=== PATIENT | male | born 1930 | race Caucasian/White ===

== ENCOUNTER → 2016-03-23 | Outpatient (CLI) | payer MEDICARE, OTHER ==
[~2016-03-23] MED LIST: /TAMS4CA PO; /WARF2TA PO; ATEN25TA PO; AUGM500T34 PO; AUGM875T27 PO; ENAL10TA2 PO; ENAL20TA PO; FLEX5TAB3 PO; FURO20TA PO; HYDR7.5T38 PO; LASI20TA PO; LIDO1DIS2 TD; MICR10CA PO; MINEOIL3 PO; MIRA33504 PO; PERCOCET PO; TERA5CA PO; TYLE325T5 PO; WARF2.5T38 PO; ZANT150T PO
[2016-03-23 13:42] LABS: INR 2.71
== END ==
LOC: M LAB 11:55
PROVIDERS: ATTEND Physician Assistant
DX: I50.32 Chronic diastolic (congestive) heart failure (principal)

== ENCOUNTER → 2016-04-20 | Outpatient (CLI) | payer MEDICARE, OTHER ==
[2016-04-20 13:26] LABS: INR 2.54
== END ==
LOC: M LAB 11:54
PROVIDERS: ATTEND Physician Assistant
DX: I48.2 Chronic atrial fibrillation (principal); Z51.81 Encounter for therapeutic drug level monitoring; Z79.01 Long term (current) use of anticoagulants

== ENCOUNTER → 2016-05-18 | Outpatient (CLI) | payer MEDICARE, OTHER ==
[2016-05-18 13:38] LABS: INR 2.72
== END ==
LOC: M LAB 13:05
PROVIDERS: ATTEND Physician Assistant
DX: I48.2 Chronic atrial fibrillation (principal); Z51.81 Encounter for therapeutic drug level monitoring; Z79.01 Long term (current) use of anticoagulants

== ENCOUNTER → 2016-06-15 | Outpatient (CLI) | payer MEDICARE, OTHER ==
[2016-06-15 13:40] LABS: INR 2.1
== END ==
LOC: M LAB 13:09
PROVIDERS: ATTEND Physician Assistant
DX: I48.2 Chronic atrial fibrillation (principal); Z51.81 Encounter for therapeutic drug level monitoring; Z79.01 Long term (current) use of anticoagulants

== ENCOUNTER → 2016-07-17 | Outpatient (CLI) | payer MEDICARE, OTHER ==
[2016-07-17 09:54] LABS: MEAN CORPUSCULAR HEMOGLOBIN 33.5 pg (27.0-33.0); MEAN CORPUSCULAR HGB CONC 33.6 g/dl (32.0-36.5); MEAN CORPUSCULAR VOLUME 99.8 fl (80.0-96.0); RED CELL DISTRIBUTION WIDTH 14.1 % (11.5-14.5); WHITE BLOOD COUNT 5.8 K/mm3 (4.0-10.0)
[2016-07-17 10:23] LABS: ALBUMIN 3.6 GM/DL (3.2-5.2); ANION GAP 8 MEQ/L (8-16); BLOOD UREA NITROGEN 24 MG/DL (7-18); CALCIUM LEVEL 8.4 MG/DL (8.8-10.2); CARBON DIOXIDE LEVEL 29 MEQ/L (21-32); CHLORIDE LEVEL 104 MEQ/L (98-107); CREATININE FOR GFR 1.01 MG/DL (0.70-1.30); GLOMERULAR FILTRATION RATE > 60.0 (>35); GLUCOSE, FASTING 96 MG/DL (83-110); PHOSPHORUS LEVEL 3.1 MG/DL (2.5-4.9); SODIUM LEVEL 141 MEQ/L (136-145)
== END ==
LOC: M LAB 08:53
PROVIDERS: ATTEND Family Medicine
DX: D64.9 Anemia, unspecified (principal); E55.9 Vitamin D deficiency, unspecified; I50.30 Unspecified diastolic (congestive) heart failure; Z79.899 Other long term (current) drug therapy

== ENCOUNTER → 2016-07-17 | Outpatient (CLI) | payer MEDICARE, OTHER ==
[2016-07-17 10:15] LABS: INR 2.32
== END ==
LOC: M LAB 08:58
PROVIDERS: ATTEND Physician Assistant
DX: Z51.81 Encounter for therapeutic drug level monitoring (principal); Z79.01 Long term (current) use of anticoagulants; I48.2 Chronic atrial fibrillation

== ENCOUNTER → 2016-07-19 | Outpatient (CLI) | payer MEDICARE, OTHER ==
--- NOTE | 2016-07-19 15:04 | REP ---
Left knee series: Five views. History: Medial left knee pain. Findings: Five views of the left knee demonstrate diffuse osteopenia. There is non-articular spurring at the superior pole of the patella at the quadriceps tendon insertion. Vascular calcification is noted. There is a mottled pattern in the medial soft tissues above and at the knees suggesting venous varicosities. Bones, joints, and soft tissues are otherwise unremarkable. Impression: Patellar spurring. Diffuse osteopenia and vascular calcification. Suspect venous varices. No acute abnormality. Signed by Darell Paiz MD 07/19/2016 04:35 P
== END ==
LOC: M ADAMS 13:45
PROVIDERS: ATTEND Family Medicine
DX: M25.762 Osteophyte, left knee (principal); M85.80 Other specified disorders of bone density and structure, unspecified site

== ENCOUNTER → 2016-08-17 | Outpatient (CLI) | payer MEDICARE, OTHER ==
[2016-08-17 12:26] LABS: INR 3.13
== END ==
LOC: M LAB 11:49
PROVIDERS: ATTEND Nurse Practitioner Family
DX: I48.2 Chronic atrial fibrillation (principal)

== ENCOUNTER → 2016-08-24 | Outpatient (CLI) | payer MEDICARE, OTHER ==
[2016-08-24 11:19] LABS: INR 3.05
== END ==
LOC: M LAB 10:28
PROVIDERS: ATTEND Physician Assistant
DX: Z51.81 Encounter for therapeutic drug level monitoring (principal); Z79.01 Long term (current) use of anticoagulants; I48.2 Chronic atrial fibrillation

== ENCOUNTER → 2016-09-07 | Outpatient (CLI) | payer MEDICARE, OTHER ==
[2016-09-07 12:05] LABS: INR 3.68
== END ==
LOC: M LAB 11:18
PROVIDERS: ATTEND Physician Assistant
DX: I48.2 Chronic atrial fibrillation (principal)

== ENCOUNTER → 2016-09-21 | Outpatient (CLI) | payer MEDICARE, OTHER ==
[2016-09-21 15:32] LABS: INR 2.91
== END ==
LOC: M LAB 14:56
PROVIDERS: ATTEND Internal Medicine Cardiovascular Disease
DX: I48.2 Chronic atrial fibrillation (principal)

== ENCOUNTER → 2016-10-05 | Outpatient (CLI) | payer MEDICARE, OTHER ==
[2016-10-05 11:27] LABS: INR 2.73
== END ==
LOC: M LAB 10:25
PROVIDERS: ATTEND Physician Assistant
DX: Z51.81 Encounter for therapeutic drug level monitoring (principal); Z79.01 Long term (current) use of anticoagulants; I48.2 Chronic atrial fibrillation

== ENCOUNTER → 2016-11-06 | Outpatient (CLI) | payer MEDICARE, OTHER ==
[2016-11-06 11:19] LABS: INR 2.56
== END ==
LOC: M LAB 10:48
PROVIDERS: ATTEND Physician Assistant
DX: Z51.81 Encounter for therapeutic drug level monitoring (principal); Z79.01 Long term (current) use of anticoagulants; I48.2 Chronic atrial fibrillation

== ENCOUNTER → 2016-12-06 | Outpatient (CLI) | payer MEDICARE, OTHER ==
[2016-12-06 11:02] LABS: INR 2.5
== END ==
LOC: M LAB 10:18
PROVIDERS: ATTEND Nurse Practitioner Family
DX: I48.2 Chronic atrial fibrillation (principal)

== ENCOUNTER → 2017-01-03 | Outpatient (CLI) | payer MEDICARE, OTHER ==
[2017-01-03 13:05] LABS: MEAN CORPUSCULAR HGB CONC 32.2 g/dl (32.0-36.5); MEAN CORPUSCULAR VOLUME 102.5 fl (80.0-96.0); PLATELET COUNT, AUTOMATED 161 10^3/uL (150-450); RED CELL DISTRIBUTION WIDTH 14.2 % (11.5-14.5); WHITE BLOOD COUNT 5.9 10^3/uL (4.0-10.0)
[2017-01-03 13:19] LABS: ALBUMIN 3.6 GM/DL (3.2-5.2); ANION GAP 8 MEQ/L (8-16); BLOOD UREA NITROGEN 21 MG/DL (7-18); CALCIUM LEVEL 8.5 MG/DL (8.8-10.2); CARBON DIOXIDE LEVEL 31 MEQ/L (21-32); CHLORIDE LEVEL 102 MEQ/L (98-107); CREATININE FOR GFR 0.94 MG/DL (0.70-1.30); GLOMERULAR FILTRATION RATE > 60.0 (>35); GLUCOSE, FASTING 105 MG/DL (83-110); MAGNESIUM LEVEL 2.3 MG/DL (1.8-2.4); PHOSPHORUS LEVEL 2.8 MG/DL (2.5-4.9); POTASSIUM SERUM 3.8 MEQ/L (3.5-5.1); SODIUM LEVEL 141 MEQ/L (136-145)
[2017-01-03 13:48] LABS: INR 2.33
== END ==
LOC: M LAB 11:14
PROVIDERS: ATTEND Physician Assistant
DX: I48.2 Chronic atrial fibrillation (principal)

== ENCOUNTER → 2017-01-29 | Outpatient (CLI) | payer MEDICARE, OTHER ==
[2017-01-29 14:04] LABS: INR 2.39
== END ==
LOC: M LAB 12:17
PROVIDERS: ATTEND Physician Assistant
DX: I48.2 Chronic atrial fibrillation (principal)

== ENCOUNTER → 2017-02-28 | Outpatient (CLI) | payer MEDICARE, OTHER ==
[2017-02-28 11:02] LABS: INR 2.31
== END ==
LOC: M LAB 10:26
PROVIDERS: ATTEND Nurse Practitioner Family
DX: I48.2 Chronic atrial fibrillation (principal)

== ENCOUNTER → 2017-04-02 | Outpatient (CLI) | payer MEDICARE, OTHER ==
[2017-04-02 13:27] LABS: ALBUMIN 3.9 GM/DL (3.2-5.2); ANION GAP 5 MEQ/L (8-16); BLOOD UREA NITROGEN 18 MG/DL (7-18); CALCIUM LEVEL 8.7 MG/DL (8.8-10.2); CARBON DIOXIDE LEVEL 31 MEQ/L (21-32); CHLORIDE LEVEL 104 MEQ/L (98-107); CREATININE FOR GFR 0.98 MG/DL (0.70-1.30); GLOMERULAR FILTRATION RATE > 60.0 (>35); GLUCOSE, FASTING 105 MG/DL (70-100); MAGNESIUM LEVEL 2.5 MG/DL (1.8-2.4); PHOSPHORUS LEVEL 3.5 MG/DL (2.5-4.9); POTASSIUM SERUM 4.2 MEQ/L (3.5-5.1); SODIUM LEVEL 140 MEQ/L (136-145)
[2017-04-02 13:29] LABS: INR 2.14; PROTHROMBIN TIME 24.7 SECONDS (12.4-14.5)
== END ==
LOC: M LAB 12:34
DX: I48.2 Chronic atrial fibrillation (principal)
CPT/HCPCS: 83735

== ENCOUNTER → 2017-05-01 | Outpatient (CLI) | payer MEDICARE, OTHER ==
[2017-05-01 13:56] LABS: HEMATOCRIT 35.6 % (42.0-52.0); HEMOGLOBIN 11.7 g/dl (14.0-18.0); MEAN CORPUSCULAR HEMOGLOBIN 33.1 pg (27.0-33.0); MEAN CORPUSCULAR HGB CONC 32.9 g/dl (32.0-36.5); MEAN CORPUSCULAR VOLUME 100.6 fl (80.0-96.0); PLATELET COUNT, AUTOMATED 150 10^3/uL (150-450); RED BLOOD COUNT 3.54 10^6/uL (4.30-6.10); RED CELL DISTRIBUTION WIDTH 14.4 % (11.5-14.5); WHITE BLOOD COUNT 5.6 10^3/uL (4.0-10.0)
[2017-05-01 14:10] LABS: INR 2.12; PROTHROMBIN TIME 24.5 SECONDS (12.4-14.5)
[2017-05-01 14:17] LABS: ALBUMIN 3.7 GM/DL (3.2-5.2); ANION GAP 8 MEQ/L (8-16); BLOOD UREA NITROGEN 21 MG/DL (7-18); CALCIUM LEVEL 8.6 MG/DL (8.8-10.2); CARBON DIOXIDE LEVEL 30 MEQ/L (21-32); CHLORIDE LEVEL 103 MEQ/L (98-107); CREATININE FOR GFR 0.95 MG/DL (0.70-1.30); GLOMERULAR FILTRATION RATE > 60.0 (>35); GLUCOSE, FASTING 92 MG/DL (70-100); MAGNESIUM LEVEL 2.4 MG/DL (1.8-2.4); PHOSPHORUS LEVEL 3.4 MG/DL (2.5-4.9); POTASSIUM SERUM 4.3 MEQ/L (3.5-5.1); SODIUM LEVEL 141 MEQ/L (136-145)
== END ==
LOC: M LAB 12:50
DX: I48.2 Chronic atrial fibrillation (principal); I50.32 Chronic diastolic (congestive) heart failure
CPT/HCPCS: 83735

== ENCOUNTER → 2017-05-29 | Outpatient (CLI) | payer MEDICARE, OTHER ==
[2017-05-29 13:45] LABS: INR 1.73; PROTHROMBIN TIME 20.8 SECONDS (12.4-14.5)
== END ==
LOC: M LAB 12:52
DX: I48.2 Chronic atrial fibrillation (principal)
CPT/HCPCS: 85610

== ENCOUNTER → 2017-06-25 | Outpatient (CLI) | payer MEDICARE, OTHER ==
[2017-06-25 15:01] LABS: ALBUMIN 3.7 GM/DL (3.2-5.2); ANION GAP 6 MEQ/L (8-16); BLOOD UREA NITROGEN 22 MG/DL (7-18); CALCIUM LEVEL 9.1 MG/DL (8.8-10.2); CARBON DIOXIDE LEVEL 31 MEQ/L (21-32); CHLORIDE LEVEL 104 MEQ/L (98-107); GLOMERULAR FILTRATION RATE > 60.0 (>35); GLUCOSE, FASTING 96 MG/DL (70-100); PHOSPHORUS LEVEL 3.8 MG/DL (2.5-4.9); POTASSIUM SERUM 4.5 MEQ/L (3.5-5.1); SODIUM LEVEL 141 MEQ/L (136-145)
== END ==
LOC: M LAB 13:06
DX: I50.32 Chronic diastolic (congestive) heart failure (principal)
CPT/HCPCS: 80069

== ENCOUNTER → 2017-06-28 | Outpatient (CLI) | payer MEDICARE, OTHER ==
[2017-06-28 14:22] LABS: INR 2.42; PROTHROMBIN TIME 27.3 SECONDS (12.4-14.5)
== END ==
LOC: M LAB 12:21
DX: Z51.81 Encounter for therapeutic drug level monitoring (principal); Z79.01 Long term (current) use of anticoagulants; I48.2 Chronic atrial fibrillation
CPT/HCPCS: 85610

== ENCOUNTER → 2017-07-26 | Outpatient (CLI) | payer MEDICARE, OTHER ==
[2017-07-26 13:13] LABS: INR 1.98; PROTHROMBIN TIME 23.2 SECONDS (12.4-14.5)
== END ==
LOC: M LAB 12:25
DX: I48.2 Chronic atrial fibrillation (principal)
CPT/HCPCS: 85610

== ENCOUNTER → 2017-08-09 | Outpatient (CLI) | payer MEDICARE, OTHER ==
[2017-08-09 14:17] LABS: INR 2.41; PROTHROMBIN TIME 27.2 SECONDS (12.4-14.5)
== END ==
LOC: M LAB 13:06
DX: Z79.01 Long term (current) use of anticoagulants (principal); I48.2 Chronic atrial fibrillation
CPT/HCPCS: 85610

== ENCOUNTER → 2017-09-10 | Outpatient (CLI) | payer MEDICARE, OTHER ==
[2017-09-10 14:51] LABS: INR 2.86; PROTHROMBIN TIME 30.6 SECONDS (12.1-14.4)
== END ==
LOC: M LAB 13:35
DX: I48.2 Chronic atrial fibrillation (principal)
CPT/HCPCS: 85610

== ENCOUNTER → 2017-10-01 | Outpatient (CLI) | payer MEDICARE, OTHER ==
[2017-10-01 13:56] LABS: HEMATOCRIT 36.4 % (42.0-52.0); HEMOGLOBIN 12.2 g/dl (13.5-17.5); MEAN CORPUSCULAR HEMOGLOBIN 33.6 pg (27.0-33.0); MEAN CORPUSCULAR HGB CONC 33.5 g/dl (32.0-36.5); MEAN CORPUSCULAR VOLUME 100.3 fl (80.0-96.0); PLATELET COUNT, AUTOMATED 176 10^3/uL (150-450); RED BLOOD COUNT 3.63 10^6/uL (4.30-6.10); RED CELL DISTRIBUTION WIDTH 14.2 % (11.5-14.5); WHITE BLOOD COUNT 6.6 10^3/uL (4.0-10.0)
[2017-10-01 14:29] LABS: ALBUMIN 3.7 GM/DL (3.2-5.2); ANION GAP 8 MEQ/L (8-16); BLOOD UREA NITROGEN 19 MG/DL (7-18); CALCIUM LEVEL 8.5 MG/DL (8.8-10.2); CARBON DIOXIDE LEVEL 27 MEQ/L (21-32); CHLORIDE LEVEL 105 MEQ/L (98-107); CREATININE FOR GFR 0.96 MG/DL (0.70-1.30); GLOMERULAR FILTRATION RATE > 60.0 (>35); GLUCOSE, FASTING 90 MG/DL (70-100); MAGNESIUM LEVEL 2.4 MG/DL (1.8-2.4); PHOSPHORUS LEVEL 3.4 MG/DL (2.5-4.9); POTASSIUM SERUM 4.2 MEQ/L (3.5-5.1); SODIUM LEVEL 140 MEQ/L (136-145)
== END ==
LOC: M LAB 13:15
DX: I50.32 Chronic diastolic (congestive) heart failure (principal); I48.2 Chronic atrial fibrillation; I11.0 Hypertensive heart disease with heart failure
CPT/HCPCS: 83735

== ENCOUNTER 2017-10-11 09:41 | Day surgery (SDC) | payer MEDICARE, OTHER ==
[2017-10-11] MEDS: PHENYLEPHRINE 2.5% OPHTH SOL 2ML OS (10:28)
[2017-10-11] MEDS: OFLOXACIN 0.3 % (OCUFLOX) OPTH SOL 5ML OS (10:28)
[2017-10-11] MEDS: PROPARACAINE 0.5% OPHTH SOL 15ML OS (10:28)
[2017-10-11] MEDS: TROPICAMIDE 1% OPHTH SOLN 2ML OS (10:29)
[2017-10-11] MEDS: POVIDONE-IODINE 5% OPHTH PREP SOL 30ML As Ordered (11:22)
[2017-10-11] MEDS ORDERED: fentaNYL 100 MCG/2 ML INJECTION (J3010) As Ordered (11:26)
[2017-10-11] MEDS: BALANCED SALT IRRIGATION SOLUTION 500ML BAG (FOR OR EYE MACHINE) As Ordered (11:26)
[2017-10-11] MEDS: LIDOCAINE 0.75%/EPINEPHRINE 0.025% IN BSS 1ML SYR INTRACAMERAL (OR ONLY) As Ordered (11:26)
[2017-10-11] MEDS: DUOVISC (0.50ML VISCOAT/0.55ML PROVISC) OPHTH KIT As Ordered (11:26)
[2017-10-11] MEDS: CEFUROXIME 1MG/0.1ML INTRACAMERAL INJ As Ordered (11:26)
[2017-10-11] MEDS ORDERED: MIDAZOLAM INJ 2 MG/2 ML VIAL (J2250) As Ordered (11:26)
== END 2017-10-11 12:40 | disposition home or self-care (01) ==
LOC: M SDC 09:41
DX: H25.12 Age-related nuclear cataract, left eye (principal); I11.0 Hypertensive heart disease with heart failure; I50.32 Chronic diastolic (congestive) heart failure; I48.91 Unspecified atrial fibrillation; M81.0 Age-related osteoporosis without current pathological fracture; M12.9 Arthropathy, unspecified; C61 Malignant neoplasm of prostate; Z79.899 Other long term (current) drug therapy; Z79.01 Long term (current) use of anticoagulants; Z87.891 Personal history of nicotine dependence
CPT/HCPCS: 66984

== ENCOUNTER → 2017-10-15 | Outpatient (CLI) | payer MEDICARE, OTHER ==
[2017-10-15 15:57] LABS: INR 1.57
== END ==
LOC: M LAB 14:06
DX: Z51.81 Encounter for therapeutic drug level monitoring (principal); Z79.01 Long term (current) use of anticoagulants; I48.2 Chronic atrial fibrillation
CPT/HCPCS: 85610

== ENCOUNTER 2017-10-18 09:19 | Day surgery (SDC) | payer MEDICARE, OTHER ==
[~2017-10-18 09:19] MED LIST changes: -/TAMS4CA PO; -/WARF2TA PO; -ATEN25TA PO; -AUGM500T34 PO; -AUGM875T27 PO; -ENAL10TA2 PO; -ENAL20TA PO; -FLEX5TAB3 PO; -FURO20TA PO; -HYDR7.5T38 PO; +HYDROmorphone HCL 2 MG/ML 1ML VIAL (J1170) As Ordered; -LASI20TA PO; -LIDO1DIS2 TD; -MICR10CA PO; -MINEOIL3 PO; -MIRA33504 PO; -PERCOCET PO; -TERA5CA PO; -TYLE325T5 PO; -WARF2.5T38 PO; -ZANT150T PO
[2017-10-18] MEDS: TROPICAMIDE 1% OPHTH SOLN 2ML OD (09:55)
[2017-10-18] MEDS: PROPARACAINE 0.5% OPHTH SOL 15ML OD (09:55)
[2017-10-18] MEDS: OFLOXACIN 0.3 % (OCUFLOX) OPTH SOL 5ML OD (09:55)
[2017-10-18] MEDS: PHENYLEPHRINE 2.5% OPHTH SOL 2ML OD (09:55)
[2017-10-18] MEDS ORDERED: MIDAZOLAM INJ 2 MG/2 ML VIAL (J2250) As Ordered (10:49)
[2017-10-18] MEDS ORDERED: fentaNYL 100 MCG/2 ML INJECTION (J3010) As Ordered (10:49)
[2017-10-18] MEDS: POVIDONE-IODINE 5% OPHTH PREP SOL 30ML As Ordered (11:06)
[2017-10-18] MEDS: DUOVISC (0.50ML VISCOAT/0.55ML PROVISC) OPHTH KIT As Ordered (11:11)
[2017-10-18] MEDS: LIDOCAINE 0.75%/EPINEPHRINE 0.025% IN BSS 1ML SYR INTRACAMERAL (OR ONLY) As Ordered (11:11)
[2017-10-18] MEDS: BALANCED SALT IRRIGATION SOLUTION 500ML BAG (FOR OR EYE MACHINE) As Ordered (11:11)
[2017-10-18] MEDS: CEFUROXIME 1MG/0.1ML INTRACAMERAL INJ As Ordered (11:12)
[2017-10-18] MEDS ORDERED: ONDANSETRON 4MG/2ML VIAL (J2405) IV (11:30)
== END 2017-10-18 11:49 | disposition home or self-care (01) ==
LOC: M SDC 09:19
DX: H25.11 Age-related nuclear cataract, right eye (principal); I11.0 Hypertensive heart disease with heart failure; I50.32 Chronic diastolic (congestive) heart failure; I48.91 Unspecified atrial fibrillation; E78.5 Hyperlipidemia, unspecified; M12.9 Arthropathy, unspecified; M81.0 Age-related osteoporosis without current pathological fracture; K59.00 Constipation, unspecified; Z79.899 Other long term (current) drug therapy; Z79.01 Long term (current) use of anticoagulants; Z87.891 Personal history of nicotine dependence; Z87.312 Personal history of (healed) stress fracture; Z85.46 Personal history of malignant neoplasm of prostate
CPT/HCPCS: 66984

== ENCOUNTER → 2017-10-31 | Outpatient (CLI) | payer MEDICARE, OTHER ==
[2017-10-31 14:34] LABS: INR 1.95; PROTHROMBIN TIME 22.6 SECONDS (12.1-14.4)
== END ==
LOC: M LAB 13:51
DX: Z51.81 Encounter for therapeutic drug level monitoring (principal); Z79.01 Long term (current) use of anticoagulants; I48.2 Chronic atrial fibrillation
CPT/HCPCS: 85610

== ENCOUNTER → 2017-11-28 | Outpatient (CLI) | payer MEDICARE, OTHER ==
[2017-11-28 14:50] LABS: INR 3.26
== END ==
LOC: M LAB 13:49
DX: Z51.81 Encounter for therapeutic drug level monitoring (principal); Z79.01 Long term (current) use of anticoagulants; I48.2 Chronic atrial fibrillation
CPT/HCPCS: 85610

== ENCOUNTER → 2017-12-13 | Outpatient (REF) | payer MEDICARE, OTHER ==
[2017-12-13 20:50] LABS: HEMATOCRIT 36.2 % (42.0-52.0); HEMOGLOBIN 11.7 g/dl (13.5-17.5); MEAN CORPUSCULAR HEMOGLOBIN 33.2 pg (27.0-33.0); MEAN CORPUSCULAR HGB CONC 32.3 g/dl (32.0-36.5); MEAN CORPUSCULAR VOLUME 102.8 fl (80.0-96.0); PLATELET COUNT, AUTOMATED 159 10^3/uL (150-450); RED BLOOD COUNT 3.52 10^6/uL (4.30-6.10); RED CELL DISTRIBUTION WIDTH 14.1 % (11.5-14.5); WHITE BLOOD COUNT 5.7 10^3/uL (4.0-10.0)
[2017-12-13 21:23] LABS: ALBUMIN 3.7 GM/DL (3.2-5.2); ALBUMIN/GLOBULIN RATIO 1.09 (1.00-1.93); ALKALINE PHOSPHATASE 66 U/L (45-117); ALT/SGPT 27 U/L (12-78); ANION GAP 7 MEQ/L (8-16); AST/SGOT 23 U/L (7-37); BILIRUBIN,TOTAL 0.6 MG/DL (0.2-1.0); BLOOD UREA NITROGEN 20 MG/DL (7-18); CALCIUM LEVEL 8.5 MG/DL (8.8-10.2); CARBON DIOXIDE LEVEL 28 MEQ/L (21-32); CHLORIDE LEVEL 105 MEQ/L (98-107); CHOLESTEROL LEVEL 186 MG/DL (<200); CHOLESTEROL RISK RATIO 4.227 (<5); FREE T4 1.03 NG/DL (0.76-1.46); GLOMERULAR FILTRATION RATE > 60.0 (>35); GLUCOSE, FASTING 78 MG/DL (70-100); HDL CHOLESTEROL 44 MG/DL (>40); LDL CHOLESTEROL 127 MG/DL (<100); NON-HDL-C 142 MG/DL; POTASSIUM SERUM 4.5 MEQ/L (3.5-5.1); SODIUM LEVEL 140 MEQ/L (136-145); TOTAL PROTEIN 7.1 GM/DL (6.4-8.2); TRIGLYCERIDES LEVEL 76 MG/DL (<150)
== END ==
LOC: M SFHCADAM 13:44
DX: D64.9 Anemia, unspecified (principal); I11.0 Hypertensive heart disease with heart failure; E78.49 Other hyperlipidemia; Z23 Encounter for immunization
CPT/HCPCS: 84443

== ENCOUNTER → 2017-12-26 | Outpatient (CLI) | payer MEDICARE, OTHER | LOC: M LAB 14:07 | DX: I50.32 Chronic diastolic (congestive) heart failure (principal) ==

== ENCOUNTER → 2017-12-26 | Outpatient (CLI) | payer MEDICARE, OTHER ==
[2017-12-26 15:18] LABS: INR 2.17; PROTHROMBIN TIME 24.6 SECONDS (12.1-14.4)
[2017-12-26 15:21] LABS: ALBUMIN 3.5 GM/DL (3.2-5.2); ANION GAP 8 MEQ/L (8-16); BLOOD UREA NITROGEN 20 MG/DL (7-18); CALCIUM LEVEL 8.1 MG/DL (8.8-10.2); CARBON DIOXIDE LEVEL 29 MEQ/L (21-32); CHLORIDE LEVEL 103 MEQ/L (98-107); CREATININE FOR GFR 0.95 MG/DL (0.70-1.30); GLOMERULAR FILTRATION RATE > 60.0 (>35); GLUCOSE, FASTING 92 MG/DL (70-100); MAGNESIUM LEVEL 2.2 MG/DL (1.8-2.4); PHOSPHORUS LEVEL 3.3 MG/DL (2.5-4.9); POTASSIUM SERUM 4.2 MEQ/L (3.5-5.1); SODIUM LEVEL 140 MEQ/L (136-145)
== END ==
LOC: M LAB 14:15
DX: I48.2 Chronic atrial fibrillation (principal)
CPT/HCPCS: 83735

== ENCOUNTER → 2018-01-25 | Outpatient (CLI) | payer MEDICARE, OTHER ==
[2018-01-25 15:16] LABS: INR 1.81; PROTHROMBIN TIME 21.3 SECONDS (12.1-14.4)
== END ==
LOC: M LAB 13:56
DX: I48.2 Chronic atrial fibrillation (principal)
CPT/HCPCS: 85610

== ENCOUNTER → 2018-03-07 | Outpatient (CLI) | payer MEDICARE, OTHER ==
[~2018-03-07] MED LIST changes: +/TAMS4CA PO; +/WARF2TA PO; +ALEN70TA57 PO; +ATEN25TA PO; +AUGM500T34 PO; +AUGM875T27 PO; +ENAL10TA2 PO; +ENAL20TA PO; +FLEX5TAB3 PO; +FURO20TA PO; +HYDR7.5T38 PO; -HYDROmorphone HCL 2 MG/ML 1ML VIAL (J1170) As Ordered; +LASI20TA PO; +LIDO1DIS2 TD; +LUTE40CA2 PO; +MICR10CA PO; +MINEOIL3 PO; +MIRA33504 PO; +PERCOCET PO; +TERA5CA PO; +TERA5CAP3 PO; +TYLE325T5 PO; +VITA50005 PO; +WARF-18 PO; +WARF2.5T38 PO; +ZANT150T PO
[2018-03-07 14:11] LABS: INR 2.45; PROTHROMBIN TIME 27.1 SECONDS (12.1-14.4)
== END ==
LOC: M LAB 13:11
PROVIDERS: ATTEND Physician Assistant
DX: I48.2 Chronic atrial fibrillation (principal)

== ENCOUNTER → 2018-04-08 | Outpatient (CLI) | payer MEDICARE, OTHER ==
[2018-04-08 15:25] LABS: INR 2.02; PROTHROMBIN TIME 23.2 SECONDS (12.1-14.4)
== END ==
LOC: M LAB 14:41
PROVIDERS: ATTEND Physician Assistant
DX: I48.2 Chronic atrial fibrillation (principal)

== ENCOUNTER → 2018-05-07 | Outpatient (CLI) | payer MEDICARE, OTHER ==
[2018-05-07 14:06] LABS: INR 1.78
[2018-05-07 14:52] LABS: BLOOD UREA NITROGEN 20 MG/DL (7-18); CALCIUM LEVEL 8.3 MG/DL (8.8-10.2); CARBON DIOXIDE LEVEL 28 MEQ/L (21-32); CHLORIDE LEVEL 103 MEQ/L (98-107); GLOMERULAR FILTRATION RATE > 60.0 (>35); GLUCOSE, FASTING 93 MG/DL (70-100); POTASSIUM SERUM 4.2 MEQ/L (3.5-5.1); SODIUM LEVEL 139 MEQ/L (136-145)
== END ==
LOC: M LAB 12:54
PROVIDERS: ATTEND Physician Assistant
DX: I50.32 Chronic diastolic (congestive) heart failure (principal)

== ENCOUNTER → 2018-05-22 | Outpatient (CLI) | payer MEDICARE, OTHER ==
[2018-05-22 14:01] LABS: INR 1.55; PROTHROMBIN TIME 18.8 SECONDS (12.1-14.4)
== END ==
LOC: M LAB 13:17
PROVIDERS: ATTEND Physician Assistant
DX: I48.2 Chronic atrial fibrillation (principal)

== ENCOUNTER → 2018-06-19 | Outpatient (CLI) | payer MEDICARE, OTHER ==
[~2018-06-19] MED LIST changes: -/TAMS4CA PO; -/WARF2TA PO; -ALEN70TA57 PO; +ALEN70TA74 PO; +COUM1TAB16 PO; +FLOM0.4C39 PO; +OXYC1TAB23 PO; -PERCOCET PO; -TERA5CA PO; +TERA5CAP60 PO
[2018-06-19 14:07] LABS: INR 2.04; PROTHROMBIN TIME 23.4 SECONDS (12.1-14.4)
== END ==
LOC: M LAB 13:16
PROVIDERS: ATTEND Physician Assistant
DX: I48.2 Chronic atrial fibrillation (principal)

== ENCOUNTER → 2018-07-22 | Outpatient (CLI) | payer MEDICARE, OTHER ==
[2018-07-22 14:15] LABS: INR 2.09; PROTHROMBIN TIME 23.9 SECONDS (12.1-14.4)
== END ==
LOC: M LAB 13:20
PROVIDERS: ATTEND Physician Assistant
DX: I48.2 Chronic atrial fibrillation (principal)

== ENCOUNTER → 2018-08-20 | Outpatient (CLI) | payer MEDICARE, OTHER ==
[2018-08-20 13:45] LABS: HEMATOCRIT 36.1 % (42.0-52.0); MEAN CORPUSCULAR HGB CONC 33.2 g/dl (32.0-36.5); MEAN CORPUSCULAR VOLUME 102.3 fl (80.0-96.0); PLATELET COUNT, AUTOMATED 153 10^3/uL (150-450); RED BLOOD COUNT 3.53 10^6/uL (4.30-6.10); WHITE BLOOD COUNT 6.4 10^3/uL (4.0-10.0)
[2018-08-20 13:58] LABS: BLOOD UREA NITROGEN 18 MG/DL (7-18); CALCIUM LEVEL 8.6 MG/DL (8.8-10.2); CARBON DIOXIDE LEVEL 30 MEQ/L (21-32); CHLORIDE LEVEL 103 MEQ/L (98-107); CREATININE FOR GFR 0.96 MG/DL (0.70-1.30); GLOMERULAR FILTRATION RATE > 60.0 (>35); GLUCOSE, FASTING 92 MG/DL (70-100); MAGNESIUM LEVEL 2.3 MG/DL (1.8-2.4); POTASSIUM SERUM 4.1 MEQ/L (3.5-5.1); SODIUM LEVEL 139 MEQ/L (136-145)
[2018-08-20 13:59] LABS: INR 2.99; PROTHROMBIN TIME 31.7 SECONDS (12.1-14.4)
== END ==
LOC: M LAB 12:53
PROVIDERS: ATTEND Physician Assistant
DX: I48.2 Chronic atrial fibrillation (principal); I50.32 Chronic diastolic (congestive) heart failure

== ENCOUNTER → 2018-09-09 | Outpatient (CLI) | payer MEDICARE, OTHER ==
[2018-09-09 14:12] LABS: INR 3.16; PROTHROMBIN TIME 32.4 SECONDS (11.8-14.0)
== END ==
LOC: M LAB 13:04
PROVIDERS: ATTEND Physician Assistant
DX: I48.2 Chronic atrial fibrillation (principal)

== ENCOUNTER → 2018-09-24 | Outpatient (CLI) | payer MEDICARE, OTHER ==
[2018-09-24 13:43] LABS: INR 2.86; PROTHROMBIN TIME 29.9 SECONDS (11.8-14.0)
== END ==
LOC: M LAB 12:42
PROVIDERS: ATTEND Physician Assistant
DX: I48.2 Chronic atrial fibrillation (principal)

== ENCOUNTER → 2018-10-23 | Outpatient (CLI) | payer MEDICARE, OTHER ==
[2018-10-23 13:31] LABS: INR 4.28; PROTHROMBIN TIME 41.2 SECONDS (11.8-14.0)
== END ==
LOC: M LAB 12:33
PROVIDERS: ATTEND Physician Assistant
DX: I48.2 Chronic atrial fibrillation (principal)

== ENCOUNTER → 2018-11-06 | Outpatient (CLI) | payer MEDICARE, OTHER ==
[2018-11-06 13:38] LABS: INR 3.49; PROTHROMBIN TIME 35.1 SECONDS (11.8-14.0)
== END ==
LOC: M LAB 12:48
PROVIDERS: ATTEND Physician Assistant
DX: I48.2 Chronic atrial fibrillation (principal)

== ENCOUNTER → 2018-11-21 | Outpatient (CLI) | payer MEDICARE, OTHER ==
[2018-11-21 13:49] LABS: INR 2.7; PROTHROMBIN TIME 28.5 SECONDS (11.8-14.0)
== END ==
LOC: M LAB 12:50
PROVIDERS: ATTEND Physician Assistant
DX: I48.2 Chronic atrial fibrillation (principal)

== ENCOUNTER → 2018-12-19 | Outpatient (CLI) | payer MEDICARE, OTHER ==
[2018-12-19 13:52] LABS: INR 2.13; PROTHROMBIN TIME 23.6 SECONDS (11.8-14.0)
== END ==
LOC: M LAB 12:50
PROVIDERS: ATTEND Physician Assistant
DX: I48.20 Chronic atrial fibrillation, unspecified (principal); Z79.01 Long term (current) use of anticoagulants

== ENCOUNTER → 2018-12-31 | Outpatient (REF) | payer MEDICARE, OTHER ==
[2018-12-31 16:27] LABS: HEMATOCRIT 36.2 % (42.0-52.0); HEMOGLOBIN 11.8 g/dl (13.5-17.5); MEAN CORPUSCULAR HEMOGLOBIN 33.6 pg (27.0-33.0); MEAN CORPUSCULAR HGB CONC 32.6 g/dl (32.0-36.5); MEAN CORPUSCULAR VOLUME 103.1 fl (80.0-96.0); PLATELET COUNT, AUTOMATED 161 10^3/uL (150-450); RED BLOOD COUNT 3.51 10^6/uL (4.30-6.10); WHITE BLOOD COUNT 5.9 10^3/uL (4.0-10.0)
[2018-12-31 16:50] LABS: ALBUMIN 3.7 GM/DL (3.2-5.2); ALT/SGPT 22 U/L (12-78); BILIRUBIN,TOTAL 0.6 MG/DL (0.2-1.0); BLOOD UREA NITROGEN 21 MG/DL (7-18); CALCIUM LEVEL 8.6 MG/DL (8.8-10.2); CARBON DIOXIDE LEVEL 29 MEQ/L (21-32); CHLORIDE LEVEL 106 MEQ/L (98-107); CREATININE FOR GFR 1.06 MG/DL (0.70-1.30); FERRITIN 365 NG/ML (26-388); GLOMERULAR FILTRATION RATE > 60.0 (>35); GLUCOSE, FASTING 90 MG/DL (70-100); IRON (FE) 60 UG/DL (65-175); PERCENT SATURATION 19.2 % (19.7-50.0); POTASSIUM SERUM 4.4 MEQ/L (3.5-5.1); SODIUM LEVEL 141 MEQ/L (136-145); TOTAL IRON BINDING CAPACITY 312 UG/DL (250-450); TOTAL PROTEIN 7.1 GM/DL (6.4-8.2)
[2018-12-31 16:57] LABS: TOTAL 25(OH) VITAMIN D 43.2 NG/ML (30.0-100.0)
[2018-12-31 16:58] LABS: FOLATE 20.1 NG/ML (>5.4); VITAMIN B12 LEVEL 624 PG/ML (247-911)
[2019-01-03 00:10] LABS: FREE KAPPA LIGHT CHAINS SERUM 33.6 mg/L (3.3-19.4); FREE LAMBDA LIGHT CHAINS SERUM 43.7 mg/L (5.7-26.3); KAPPA/LAMBDA RATIO SERUM 0.77 (0.26-1.65)
== END ==
LOC: M SFHCADAM 14:03
PROVIDERS: ATTEND Family Medicine
DX: D64.9 Anemia, unspecified (principal); I50.30 Unspecified diastolic (congestive) heart failure; Z87.81 Personal history of (healed) traumatic fracture; M81.0 Age-related osteoporosis without current pathological fracture
CPT/HCPCS: 80053; 82306; 82607; 82728; 82746; 83550; 83883; 85027; 85046; G0463

== ENCOUNTER → 2019-01-20 | Outpatient (CLI) | payer MEDICARE, OTHER ==
[2019-01-20 14:09] LABS: INR 2.56; PROTHROMBIN TIME 27.4 SECONDS (11.8-14.0)
== END ==
LOC: M LAB 13:01
PROVIDERS: ATTEND Physician Assistant
DX: I48.20 Chronic atrial fibrillation, unspecified (principal)

== ENCOUNTER → 2019-01-28 | Outpatient (CLI) | payer MEDICARE, OTHER ==
[2019-01-28 13:06] LABS: HEMATOCRIT 35.8 % (42.0-52.0); HEMOGLOBIN 11.6 g/dl (13.5-17.5); MEAN CORPUSCULAR HEMOGLOBIN 33.6 pg (27.0-33.0); MEAN CORPUSCULAR HGB CONC 32.4 g/dl (32.0-36.5); MEAN CORPUSCULAR VOLUME 103.8 fl (80.0-96.0); PLATELET COUNT, AUTOMATED 161 10^3/uL (150-450); RED BLOOD COUNT 3.45 10^6/uL (4.30-6.10); WHITE BLOOD COUNT 6.1 10^3/uL (4.0-10.0)
[2019-01-28 13:29] LABS: BLOOD UREA NITROGEN 17 MG/DL (7-18); CALCIUM LEVEL 8.6 MG/DL (8.8-10.2); CARBON DIOXIDE LEVEL 29 MEQ/L (21-32); CHLORIDE LEVEL 106 MEQ/L (98-107); CREATININE FOR GFR 1.03 MG/DL (0.70-1.30); GLOMERULAR FILTRATION RATE > 60.0 (>35); GLUCOSE, FASTING 101 MG/DL (70-100); POTASSIUM SERUM 4.3 MEQ/L (3.5-5.1); SODIUM LEVEL 139 MEQ/L (136-145)
== END ==
LOC: M LAB 12:39
PROVIDERS: ATTEND Physician Assistant
DX: I48.20 Chronic atrial fibrillation, unspecified (principal); I50.32 Chronic diastolic (congestive) heart failure

== ENCOUNTER → 2019-02-18 | Outpatient (CLI) | payer MEDICARE, OTHER ==
[2019-02-18 14:54] LABS: INR 2.35; PROTHROMBIN TIME 25.5 SECONDS (11.8-14.0)
== END ==
LOC: M LAB 13:27
PROVIDERS: ATTEND Physician Assistant
DX: I48.21 Permanent atrial fibrillation (principal)

== ENCOUNTER → 2019-03-19 | Outpatient (CLI) | payer MEDICARE, OTHER ==
[2019-03-19 13:50] LABS: INR 3.37; PROTHROMBIN TIME 34.1 SECONDS (11.8-14.0)
== END ==
LOC: M LAB 12:50
PROVIDERS: ATTEND Physician Assistant
DX: I48.21 Permanent atrial fibrillation (principal)

== ENCOUNTER → 2019-04-01 | Outpatient (CLI) | payer MEDICARE, OTHER ==
[2019-04-01 14:19] LABS: INR 2.68; PROTHROMBIN TIME 28.4 SECONDS (11.8-14.0)
== END ==
LOC: M LAB 13:24
PROVIDERS: ATTEND Physician Assistant
DX: I48.21 Permanent atrial fibrillation (principal)

== ENCOUNTER → 2019-04-29 | Outpatient (CLI) | payer MEDICARE, OTHER ==
[2019-04-29 14:18] LABS: INR 2.75
== END ==
LOC: M LAB 13:16
PROVIDERS: ATTEND Physician Assistant
DX: I48.21 Permanent atrial fibrillation (principal)

== ENCOUNTER → 2019-04-29 | Outpatient (CLI) | payer MEDICARE, OTHER ==
[2019-04-29 14:37] LABS: BLOOD UREA NITROGEN 20 MG/DL (7-18); CALCIUM LEVEL 8.6 MG/DL (8.8-10.2); CARBON DIOXIDE LEVEL 32 MEQ/L (21-32); CHLORIDE LEVEL 106 MEQ/L (98-107); CREATININE FOR GFR 0.99 MG/DL (0.70-1.30); GLOMERULAR FILTRATION RATE > 60.0 (>35); GLUCOSE, FASTING 95 MG/DL (70-100); MAGNESIUM LEVEL 2.3 MG/DL (1.8-2.4); POTASSIUM SERUM 4.1 MEQ/L (3.5-5.1); SODIUM LEVEL 142 MEQ/L (136-145)
== END ==
LOC: M LAB 13:20
PROVIDERS: ATTEND Physician Assistant
DX: I50.32 Chronic diastolic (congestive) heart failure (principal); I48.20 Chronic atrial fibrillation, unspecified; I48.21 Permanent atrial fibrillation

== ENCOUNTER → 2019-05-27 | Outpatient (CLI) | payer MEDICARE, OTHER ==
[2019-05-27 14:14] LABS: INR 3.02; PROTHROMBIN TIME 31.3 SECONDS (11.8-14.0)
== END ==
LOC: M LAB 12:53
PROVIDERS: ATTEND Physician Assistant
DX: I48.21 Permanent atrial fibrillation (principal)

== ENCOUNTER → 2019-06-24 | Outpatient (CLI) | payer MEDICARE, OTHER ==
[~2019-06-24] MED LIST changes: +FURO40TA2 PO
[2019-06-24 14:12] LABS: HEMATOCRIT 35.4 % (42.0-52.0); HEMOGLOBIN 11.7 g/dl (13.5-17.5); MEAN CORPUSCULAR HEMOGLOBIN 34.4 pg (27.0-33.0); MEAN CORPUSCULAR HGB CONC 33.1 g/dl (32.0-36.5); MEAN CORPUSCULAR VOLUME 104.1 fl (80.0-96.0); PLATELET COUNT, AUTOMATED 157 10^3/uL (150-450); WHITE BLOOD COUNT 5.3 10^3/uL (4.0-10.0)
[2019-06-24 14:30] LABS: INR 2.49; PROTHROMBIN TIME 26.8 SECONDS (11.8-14.0)
[2019-06-24 14:32] LABS: BLOOD UREA NITROGEN 20 MG/DL (7-18); CALCIUM LEVEL 8.6 MG/DL (8.8-10.2); CARBON DIOXIDE LEVEL 32 MEQ/L (21-32); CHLORIDE LEVEL 104 MEQ/L (98-107); CREATININE FOR GFR 0.99 MG/DL (0.70-1.30); GLOMERULAR FILTRATION RATE > 60.0 (>35); GLUCOSE, FASTING 92 MG/DL (70-100); MAGNESIUM LEVEL 2.3 MG/DL (1.8-2.4); POTASSIUM SERUM 4.1 MEQ/L (3.5-5.1); SODIUM LEVEL 140 MEQ/L (136-145)
== END ==
LOC: M LAB 13:36
PROVIDERS: ATTEND Physician Assistant
DX: Z01.818 Encounter for other preprocedural examination (principal); I48.21 Permanent atrial fibrillation; I50.32 Chronic diastolic (congestive) heart failure

== ENCOUNTER 2019-07-01 06:41 | Day surgery (SDC) | payer MEDICARE, OTHER ==
[~2019-07-01] VITALS: Ht 172.7 cm; Wt 78.8 kg
[~2019-07-01 06:41] MED LIST changes: +LIDOCAINE 1% MDV 20ML VIAL SQ PRN; +LR 1,000 ML IV ONE; +ceFAZolin SOD 1 GM in D5W MINI-BAG PLUS 50 ML IV ONE
[2019-07-01 07:48] LABS: INR 1.47; PROTHROMBIN TIME 17.6 SECONDS (11.8-14.0)
[2019-07-01] MEDS ORDERED: fentaNYL 100 MCG/2 ML INJECTION (J3010) As Ordered ONE ×2 (08:13→09:54)
[2019-07-01] MEDS ORDERED: LIDOCAINE 2% 100MG/5ML SDV (FOR ANES.) As Ordered ONE (08:13)
[2019-07-01] MEDS ORDERED: ROCURONIUM BROMIDE 50 MG/5 ML VIAL As Ordered ONE (08:13)
[2019-07-01] MEDS ORDERED: SUCCINYLCHOLINE 100 MG/5 ML SYRINGE (J0330) As Ordered ONE (08:13)
[2019-07-01] MEDS ORDERED: MIDAZOLAM INJ 2MG/2ML VIAL (J2250 PER 1MG) As Ordered ONE (08:13)
[2019-07-01] MEDS ORDERED: propofoL 200 MG/20 ML VIAL As Ordered ONE (08:13)
[2019-07-01] MEDS ORDERED: BUPIVACAINE/EPIN 0.25% 30 ML VIAL As Ordered ONE (08:54)
[2019-07-01] MEDS ORDERED: PHENYLephrine HCL 500 MCG/5 ML (100MCG/ML) SYRINGE (J2370) As Ordered ONE (09:12)
[2019-07-01] MEDS ORDERED: METOCLOPRAMIDE INJ 10MG/2ML VIAL (J2765 PER 1) As Ordered ONE (09:12)
[2019-07-01] MEDS ORDERED: SUGAMMADEX SODIUM 500 MG/5 ML VIAL (BRIDION) As Ordered ONE (09:29)
[2019-07-01] MEDS ORDERED: ONDANSETRON 4MG/2ML VIAL (J2405 PER 1MG) As Ordered ONE (09:30)
[2019-07-01] MEDS ORDERED: ACETAMINOPHEN 1000MG 100ML IV BTL (OFIRMEV) (J0131 PER 10MG) As Ordered ONE (09:30)
[2019-07-01] MEDS ORDERED: oxyCODONE 5MG TAB PO PRN (11:30)
[2019-07-01] MEDS ORDERED: ACETAMINOPHEN TAB 650MG DOSE (2X325MG) PO PRN (11:30)
[2019-07-01] MEDS ORDERED: LR 1,000 ML IV SCH ×2 (11:30)
[2019-07-01] MEDS ORDERED: NORCO, ANEXSIA 5/325MG TABLET (HYDROcodone/ACETAMINOPHEN) PO PRN (11:30)
[2019-07-01] MEDS ORDERED: fentaNYL 100 MCG/2 ML INJECTION (J3010) IV PRN (11:30)
[2019-07-01] MEDS ORDERED: ONDANSETRON 4MG/2ML VIAL (J2405 PER 1MG) IV PRN (11:30)
[2019-07-01 13:45] VITALS: BP 157/74
== END 2019-07-01 14:23 | disposition home or self-care (01) ==
LOC: M SDC 06:41
PROVIDERS: ATTEND Surgery
DX: K40.90 Unilateral inguinal hernia, without obstruction or gangrene, not specified as recurrent (principal); I50.32 Chronic diastolic (congestive) heart failure; I11.0 Hypertensive heart disease with heart failure; I48.21 Permanent atrial fibrillation; R94.31 Abnormal electrocardiogram [ECG] [EKG]; Z87.891 Personal history of nicotine dependence; Z79.01 Long term (current) use of anticoagulants; Z79.899 Other long term (current) drug therapy
CPT/HCPCS: 36415; 49505; 85610; 88302; C1781; J0131; J0330; J0690; J2250; J2370; J2405; J2765; J3010